=== PATIENT | female | born 1970 | race African-American/Black ===

== ENCOUNTER 2019-05-10 19:27 | Emergency (ER) | payer OTHER ==
[~2019-05-10] VITALS: Ht 162.6 cm; Wt 91.6 kg
[2019-05-10 20:02] LABS: BILIRUBIN,URINE NEGATIVE (NEG); CLARITY,URINE CLEAR; COLOR,URINE YELLOW; NITRITE,URINE NEGATIVE (NEG); PROTEIN,URINE NEGATIVE (NEG-TRACE); UROBILINOGEN,URINE 0.2 mg/dL (0.2 mg/dL)
[2019-05-10 20:10] LABS: BACTERIA,URINE FEW /HPF (0-FEW)
[2019-05-10 20:11] LABS: SQUAMOUS EPITHELIAL CELL,UR MOD /LPF
[2019-05-10 20:20] VITALS: BP 149/91
[2019-05-10] MEDS ORDERED: LOSA100T14 PO (20:21)
--- NOTE | 2019-05-10 20:21 | PHYS DOC ---
Past Medical History Past Medical History: Hypertension, Other Additional Past Medical Histor: BRAIN ANEURYSM Past Surgical History: Other Additional Past Surgical Histo: D&C, LAMINECTOMY, ANEURYSM REPAIR Alcohol Use: Occasionally Drug Use: None Adult General Chief Complaint Chief Complaint: HYPERTENSION [facility] HPI Patient is a 48-year-old female who presents with complaint of elevated blood pressure that is progressively worsening over the last month or so. Patient's last visit to her primary care doctor was about 3 months ago for her blood pressure and she states it was good at that time. She does admit to some significant dietary changes since that time and wonders if that may be responsible for the blood pressure changes. She does admit to increased salt intake. She denies any headache, chest pain or shortness of breath.[] Review of Systems Review of Systems Constitutional: Denies fever or chills [] Eyes: Denies change in visual acuity, redness, or eye pain [] Respiratory: Denies cough or shortness of breath [] Cardiovascular: No additional information not addressed in HPI [] Neurologic: Denies headache, focal weakness or sensory changes [] Allergies Allergies Allergies Coded Allergies Type Severity Reaction Last Updated Verified No Known Medication Allergies Allergy Unknown 05/10/19 Yes lisinopril Adverse Reaction Intermediate COUGH 05/10/19 Yes Physical Exam Physical Exam Constitutional: Well developed, well nourished, no acute distress, non-toxic appearance. [] HENT: Normocephalic, atraumatic, bilateral external ears normal, oropharynx moist, no oral exudates, nose normal. [] Eyes: PERRLA, EOMI, conjunctiva normal, no discharge. [] Cardiovascular:Heart rate regular rhythm, no murmur [] Lungs & Thorax: Bilateral breath sounds clear to auscultation [] Extremities: No tenderness, no cyanosis, no clubbing, ROM intact, no edema. [] Neurologic: Alert and oriented X 3, no focal deficits noted. [] Current Patient Data Vital Signs Vital Signs Date Time Temp Pulse Resp B/P (MAP) Pulse Ox O2 Delivery O2 Flow Rate FiO2 05/10/19 19:40 98.1 56 16 189/88 (121) 99 Room Air 98.1 Lab Values Laboratory Tests Test 05/10/19 19:50 05/10/19 19:55 Urine Collection Type Unknown Urine Color Yellow Urine Clarity Clear Urine pH 6.0 Urine Specific [place] 1.015 Urine Protein Negative mg/dL (NEG-TRACE) Urine Glucose (UA) Negative mg/dL (NEG) Urine Ketones (Stick) Negative mg/dL (NEG) Urine Blood Trace (NEG) Urine Nitrite Negative (NEG) Urine Bilirubin Negative (NEG) Urine Urobilinogen Dipstick 0.2 mg/dL (0.2 mg/dL) Urine Leukocyte Esterase Negative (NEG) Urine RBC 1-2 /HPF (0-2) Urine WBC 1-4 /HPF (0-4) Urine Squamous Epithelial Cells Mod /LPF Urine Bacteria Few /HPF (0-FEW) Urine Mucus Mod /LPF POC Urine HCG, Qualitative Hcg negative (Negative) EKG EKG [] Radiology/Procedures Radiology/Procedures [] Course & Med Decision Making Course & Med Decision Making Pertinent Labs and Imaging studies reviewed. (See chart for details) [] Dragon Disclaimer Dragon Disclaimer This electronic medical record was generated, in whole or in part, using a voice recognition dictation system. Departure Departure Impression: Primary Impression: Essential hypertension Disposition: 01 HOME, SELF-CARE Condition: STABLE Referrals: UNKNOWN PCP NAME (PCP) Patient Instructions: Hypertension Scripts Losartan Potassium (LOSARTAN POTASSIUM) 100 Mg Tablet 100 MG PO DAILY for HYPERTENSION, #30 TAB Prov: CHE PURVIS Jr. DO 05/10/19 CHE PURVIS Jr. DO May 10, 2019 20:21
== END 2019-05-10 20:29 | disposition home or self-care (01) ==
LOC: ER 19:27
DX: I10 Essential (primary) hypertension (principal); Z88.8 Allergy status to other drugs, medicaments and biological substances
CPT/HCPCS: 81001; 81025; 99283